=== PATIENT | male | born 1960 | race Two or more races ===

== ENCOUNTER 2022-07-02 12:18 | Emergency (ER) | payer SELFPAY ==
[~2022-07-02] VITALS: Ht 177.8 cm; Wt 128.0 kg
[2022-07-02 14:55] VITALS: BP 157/82
== END 2022-07-02 14:58 | disposition home or self-care (01) ==
LOC: ER 12:18
DX: I87.2 Venous insufficiency (chronic) (peripheral) (principal)
CPT/HCPCS: 93971